=== PATIENT | female | born 1945 | race Caucasian/White ===

== ENCOUNTER 2019-10-07 11:48 | Inpatient (IN) | payer MEDICARE, OTHER ==
[~2019-10-07] VITALS: Ht 167.6 cm; Wt 61.5 kg
[2019-11-11] VITALS (11 sets, daily range): BP systolic 91–134; BP diastolic 42–67; PULSE 43–71; TEMP 97–97.9
--- NOTE | 2019-11-11 05:58 | NUR ---
Pt arrived to unit to have her right hip replaced. Pt alert and oriented with VSS. Consent signed. Pre-op meds given, site scrubbed and oliva. All questions asked and answered. Call light within reach, will continue to monitor.
[2019-11-11] MEDS ORDERED: COZAAR 25MG25 MG/TAB PO (06:01)
[2019-11-11] MEDS ORDERED: NEXIUM 20MG20 MG PO (06:02)
[2019-11-11] MEDS ORDERED: [UNRECOGNIZED DRUG - OTHER] (06:04)
--- NOTE | 2019-11-11 06:05 | NUR ---
Pt IV started, 20g to right AC. Flushes and CD&I.
--- NOTE | 2019-11-11 11:00 | NUR ---
PATIENT IS A&O. VSS. PATIENT IS STARTING TO C/O PAIN IN RIGHT HIP. PATIENT WANTS TO STAY ON TOP OF THE PAIN. GAVE PRN ROXICODONE, TWO TABS WITH SCHEDULED TYLENOL. RTH DRESSING IS CD&I WITH FOAM DSG AND ICE PACK INPLACE. TEDS & SCD'S TO BLE. POSITIVE PEDAL PULSES TO BLE. STALLWORTH TO DD WITH CLEAR YELLOW URINE NOTED. IV FLUIDS INFUSING VIA PUMP INTO RIGHT FORARM IV. NO C/O N/V. LIQUIDS & ICE CHIPS AT BEDSIDE. HEAD TO TOE WNL. AT BEDSIDE.
--- NOTE | 2019-11-11 13:35 | NUR ---
PATIENT REPORTS ROXICODONE AND TYLENOL DIDN'T DO ANYTHING FOR HER PAIN. GAVE PRN ULTRAM, TWO TABS. PATIENT C/O FEELING COLD AND SHAKY. PATIENT BECAME VERY DRAMATIC QUICKLY MAKING MOANING NOISES AND STATING "IM SHAKING, IM SHAKING" OVER AND OVER. NURSING EDUCATED PATIENT AND ABOUT POST ANESTHESIA AND FEELING COLD. APPLIED SEVERAL WARM BLANKETS. PATIENT CONTINUES TO BE VERY DRAMATIC TELLING HER "DONT LEAVE ME". NURSING AT BEDSIDE. VSS. NURSING OFFERED TO CALL PHYSICIAN FOR AM IM ORDER FOR DEMEROL. PATIENT IS NOW BETTER AND RESTING.
--- NOTE | 2019-11-11 15:36 | NUR ---
SW met with the patient to discuss discharge plan. The patient lives in [place] with her partner, Rashad Henry ([phone]). She reports independence with ADLs and has a cane, walker, and showerchair. The patient's PCP is Dr. Kashmir Bragg and she receives her medications at [facility]. She reports no difficulties obtaining her meds. The patient's DPOA-HC is in her chart. It designates Hitesh Crockett and the alternate is her son, Abundio Lundy. The patient states Hitesh was her and that that her divorce from Hitesh is almost finalized. The patient was not interested in completing a new DPOA-HC at this time. The patient plans to return home with her partner and receive outpatient PT at [facility] upon discharge. No additional needs at this time.
--- NOTE | 2019-11-11 16:00 | NUR ---
PATIENT HAS BEEN ABLE TO GET SOME SLEEP. PATIENT REPORTS HER RIGHT HIP AND KNEE FEEL STIFF. REPOSITIONED PATIENT AND PUT PILLOW UNDER RIGHT KNEE. GAVE PRN ROXICODONE, TWO TABS. PATIENT RESTING.
--- NOTE | 2019-11-11 17:30 | NUR ---
PATIENT CALLED OUT SCREAMING AND PANTING STATING SHE IS HAVING HORRIBLE PAIN IN HER RLE. PAIN IS DESCRIBED SEVERE MUSCLE SPASM THAT RADIATES DOWN TO HER RIGHT KNEE. GAVE PRN IV MORPHINE. PATIENT STILL SCREAMING AND APPEARS TO BE HAVING A PANIC ATTACK. PATIENT REPORTS SHE DOES THIS FROM TIME TO TIME. PATIENT CALLED , WHO IS ON HIS WAY. NURSING RUBBING PATIENT'S RLE KNEE, WHICH SHE REPORTS IS HELPING. APPLIED K-PAD TO RIGHT KNEE. CALLED ORTHO. SEE ORDERS. GAVE PRN TORADOL IV.
--- NOTE | 2019-11-11 17:45 | NUR ---
PATIENT REPORTS SHE FEELS LIKE THE TORADOL IS HELPING. PATIENT IS STARTING TO RELAX. AT BEDSIDE. PATIENT HOLDING ON TO HUSBANDS ARM, WHICH HELPS HER FEEL CALM. IS VERY SUPPORTIVE. WILL MONITOR PAIN PROGRESS.
--- NOTE | 2019-11-11 18:15 | NUR ---
PATIENT TRANSFERED INTO ROOM 327 DUE TO ISSUES WITH CALL LIGHT. NIGHT STOCKER TRANSFERED ALL BELONGINGS. PATIENT TRANSFERED IN BED. NO ISSUES. AT BEDSIDE. CALL LIGHT IN REACH.
--- NOTE | 2019-11-11 20:00 | NUR ---
Report received. 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 Assessment complete. VS stable. A&Ox3-drowsy. Denies nausea/pain/shortness of breath. Dressing to right hip-gauze/foam tape-C/D/I. SCDs/TEDs bilat. States pain is better since Toradol was given. Has tolerated a small amount of clear liquids. Family remains at bedside. Call light in reach. Encouraged to call for needs. Will monitor.
--- NOTE | 2019-11-11 22:00 | NUR ---
Resting in bed, eyes closed. Denies pain. Refusing to get up out of bed stating she discussed it with day shift and decided it would be best to not ambulate until tomorrow with PT due to pain that was uncontrollable during early PM. Will try again later but very adament she does not want to even sit on side of bed.
[2019-11-12] VITALS: BP 108/50; PULSE 73; TEMP 98
[2019-11-12 04:00] VITALS: BP 111/49; PULSE 70; TEMP 97.8
--- NOTE | 2019-11-12 04:00 | NUR ---
Rested well this shift. Received Tramadol per dr order one time. Has rated pain low since yesterdays issues with pain control. Did not attempt to ambulate this shift-refused. Tolerating a small amount of clear liquids-Continued IV fluids through this shift. Denies needs. Call light in reach. will monitor.
--- NOTE | 2019-11-12 07:01 | NUR ---
Report to ZACK Raya
--- NOTE | 2019-11-12 07:05 | NUR ---
Report to ZACK Hull
[2019-11-12 07:52] LABS: HEMOGLOBIN 10.6 g/dl (12.5-16.0)
[2019-11-12 07:55] LABS: HEMATOCRIT 32.6 % (37.0-47.0)
[2019-11-12 07:56] VITALS: BP 102/47; PULSE 72; TEMP 98.6
--- NOTE | 2019-11-12 08:46 | NUR ---
PT SITTING UP IN BED EATING BREAKFAST. PT DID NOT GET UP LAST NOC GAMAL AWARE. DRESSING TO RIGHT HIP CDI WITH OCCLUSIVE DRESSING OVER INCISION. DRESSING CHANGE POD2 PER GAMAL (NEW POST OP ROUTINE). AM MEDS GIVEN AND PT TOLERATING PO INTAKE WELL. STALLWORTH TO DD WITH CLEAR YELLOW URINE IN BAG.
--- NOTE | 2019-11-12 12:20 | NUR ---
First visit from the program manager slp. No needs right now.
[2019-11-12 12:22] VITALS: BP 101/50; PULSE 71; TEMP 98.2
--- NOTE | 2019-11-12 12:26 | NUR ---
Initial visit; Patient thanked University Controller for looking in on her, visiting and offering a blessing for her recovery.
--- NOTE | 2019-11-12 15:36 | NUR ---
Follow-up visit; accompanied a friend from [employer] for a short visit with [facility].
[2019-11-12 16:20] VITALS: BP 121/56; PULSE 75; TEMP 98.7
--- NOTE | 2019-11-12 19:14 | NUR ---
REPORT TO LAWANDA DIXON.
[2019-11-12 20:00] VITALS: BP 101/42; PULSE 75; TEMP 97.8
--- NOTE | 2019-11-12 20:30 | NUR ---
Pt. sitting up in bed at this time. Pt. is A&OX3, assessment complete. INT to rt. wrist patent. Dressint to Rt. hip CDI. Pt. reports pain at a 4 at this time. Will give pain meds per orders. Pt. denies further needs, call light within reach.
[2019-11-13] VITALS: BP 104/54; PULSE 71; TEMP 97.9
[2019-11-13 04:00] VITALS: BP 117/49; PULSE 80; TEMP 97.6
[2019-11-13 06:44] LABS: HEMOGLOBIN 10.6 g/dl (12.5-16.0)
[2019-11-13 06:48] LABS: HEMATOCRIT 32.5 % (37.0-47.0)
[2019-11-13 07:01] VITALS: BP 123/50; PULSE 77; TEMP 98
[2019-11-13 12:19] VITALS: BP 105/57; PULSE 72; TEMP 98.4
[2019-11-13 16:00] VITALS: BP 122/58; PULSE 79; TEMP 98.9
--- NOTE | 2019-11-13 16:20 | NUR ---
The patient is to tentatively discharge tomorrow, 11/14. JONEL met with the patient to review discharge plan. The patient states that she still plans to return home with her partner come [facility]. She states that she would still just like to work on some stairs. JONEL notified the patient's RN. She had no other questions or concerns for SW. No additional needs at this time.
--- NOTE | 2019-11-13 19:27 | NUR ---
Patient has done well today. She is wanting to avoid pain medication if she is able. Offered medication this evening & she refused. Her appetite has increased today. Hip dressing intact. Overall she is doing better. Report to Sangeetha DIXON
[2019-11-13 19:32] VITALS: BP 106/48; PULSE 71; TEMP 97.8
[2019-11-14] VITALS: BP 115/57; PULSE 79; TEMP 98
[2019-11-14 04:00] VITALS: BP 119/53; PULSE 78; TEMP 97.8
--- NOTE | 2019-11-14 04:16 | NUR ---
Patient noted to ambulate with walker down the hallway before bed. Took one PRN pain pill before bed and has slept well throughout the night. Denies any further needs. Will continue to monitor.
[2019-11-14] MEDS ORDERED: ASPI325T6 PO (07:16)
[2019-11-14] MEDS ORDERED: NORCO 325 MG-7.1 TAB PO (07:17)
[2019-11-14] MEDS ORDERED: ULTRAM 50MG TAB50 MG PO (07:17)
[2019-11-14] MEDS ORDERED: TYLENOL 500MG500 MG PO (07:18)
[2019-11-14] MEDS ORDERED: COLACE 100100 MG/CAP PO (07:18)
[2019-11-14 08:40] VITALS: BP 96/51; PULSE 75; TEMP 98.2
--- NOTE | 2019-11-14 09:04 | NUR ---
The patient is to discharge back home with her life partner today, 11/14, with outpatient PT at [facility]. SW presented and explained the IM form to the patient. The patient verbalized understanding, signed, and she was provided a copy. No additional needs at this time.
--- NOTE | 2019-11-14 09:46 | NUR ---
PT INDEPENDENT IN ROOM. PLAN ON DISCHARGE LATER TODAY. DRESSING TO RIGHT HIP CDI. AQUACEL INPLACE. PAIN WELL CONTROLLED WITH PO MEDS.
--- NOTE | 2019-11-14 11:41 | NUR ---
DISCHARGE INSTRUCTIONS PROVIDED TO PT AND SIGNIFICANT OTHER. PT VERBALIZED UNDERSTANDING. PT TAKEN BY WHEEL CHAIR TO FRONT. QUESTIONS SOLICITED AND ANSWERED.
== END 2019-11-14 11:43 | disposition home or self-care (01) | DRG 470 ==
LOC: JCC 11-11 05:28
PROVIDERS: ADMIT Orthopaedic Surgery
PROC: 0SR90JA Replacement of Right Hip Joint with Synthetic Substitute, Uncemented, Open Approach (ICD-10-PCS; principal; 2019-11-11 07:30)
DX: M16.11 Unilateral primary osteoarthritis, right hip (principal); I10 Essential (primary) hypertension; K21.9 Gastro-esophageal reflux disease without esophagitis
CPT/HCPCS: A4314; C1776; J0690; J1885; J2250; J2270; J2704; J3010; J7030; J7120

== ENCOUNTER → 2019-11-04 | Outpatient (CLI) | payer MEDICARE, OTHER | LOC: COL.LAB 12:55 | DX: Z01.812 Encounter for preprocedural laboratory examination (principal); Z01.83 Encounter for blood typing; M16.11 Unilateral primary osteoarthritis, right hip ==